=== PATIENT | female | born 1975 | race Caucasian/White ===

== ENCOUNTER 2020-07-28 13:05 | Emergency (ER) | payer SELFPAY ==
[2020-07-28] MEDS ORDERED: MORPHINE 4 MG/ML SYR ONE (13:55)
[2020-07-28] MEDS ORDERED: NA CHLORIDE 0.9% 1,000 ML ONE (13:55)
[2020-07-28] MEDS ORDERED: ONDANSETRON 4 MG/2 ML VIAL ONE (13:55)
--- NOTE | 2020-07-28 13:58 | RAD REPORT ---
EXAM DESCRIPTION: US - Abdomen Exam Limited - 07/28/2020 1:49 pm CLINICAL HISTORY: ABD PAIN COMPARISON: No comparisons FINDINGS: No gallstones, sludge or other abnormalities within the gallbladder lumen. There is no wal l thickening or pericholecystic fluid. Gallbladder is only partially filled limiting detail. No common duct stone or biliary tree dilatation identified. IMPRESSION: Normal gallbladder and biliary tree ultrasound.
[2020-07-28 14:16] LABS: Absolute Lymphocytes (CBC) 2.2 K/uL (0.7-4.9); Basophils % 0.9 % (0-1.3); Hematocrit 31.6 % (36.0-45.0); MPV 8.8 fL (7.6-11.3); RBC Red Blood Cell Count 4.88 M/uL (3.86-4.86)
--- NOTE | 2020-07-28 14:34 | RAD REPORT ---
EXAM DESCRIPTION: CT - Abdomen Pelvis W Contrast - 07/28/2020 2:21 pm CLINICAL HISTORY: ABD PAIN COMPARISON: Abdomen Exam Limited dated 07/28/2020 TECHNIQUE: Biphasic, helical CT imaging of the abdomen and pelvis was performed following 100 ml non -ionic IV contrast. Oral contrast was given. All CT scans are performed using dose optimization technique as appropriate and may include automated exposure control or mA/KV adjustment according to patient size. FINDINGS: No suspicious findings in the lung bases. The liver, spleen, and pancreas show no suspicious findings. A 6 cm benign liver cyst present. Gallbl adder and biliary tree are also without suspicious finding. Symmetric renal function is seen with no hydronephrosis or suspicious renal mass. No pyelonephritis o r acute parenchymal process. No bladder abnormalities. No adrenal abnormalities. A 2 cm left ovary cy st is present.Normal uterus and right ovary. No dilated bowel loops or bowel wall thickening. No free air, abnormal free fluid or inflammatory st randing. No hernia, mass or bulky lymphadenopathy. No suspicious bony findings. IMPRESSION: Contrast enhanced CT abdomen and pelvis showing no significant or suspicious finding.
[2020-07-28 14:36] LABS: ALT/SGPT 23 U/L (12-78); AST/SGOT 15 U/L (15-37); Albumin 3.4 g/dL (3.4-5.0); Alkaline Phosphatase 87 U/L (45-117); BUN Blood Urea Nitrogen 11 mg/dL (7-18); Bicarbonate 26 mmol/L (21-32); Bilirubin Direct < 0.1 mg/dL (0-0.2); Bilirubin Total 0.4 mg/dL (0.2-1.0); Glucose Level 78 mg/dL (74-106); Lipase 161 U/L (73-393); Potassium 4.1 mmol/L (3.5-5.1); Protein, Total 7.5 g/dL (6.4-8.2); Sodium Level 140 mmol/L (136-145)
[2020-07-28 14:42] LABS: Anisocytosis 1+; Blood Morphology Comment NOTED (NOT SEEN); Hypochromasia 1+; Platelet Estimate ADEQ; White Blood Cell Scan OK (OK)
--- NOTE | 2020-07-28 14:48 | EDPHYS ---
Physician Documentation [facility] Name: aSmson Mckee Age: 44 yrs Sex: Female : 1975 Arrival Date: 07/28/2020 Time: 13:08 Bed 8 Private MD: JACQUE Physician Shawn Simpson HPI: 07/28 13:26 This 44 yrs old Female presents to ER via Ambulatory with complaints of R kb Side Pain. 13:26 The patient presents with abdominal pain in the right upper quadrant. Onset: The kb symptoms/episode began/occurred 1 year(s) ago, and became worse today. The symptoms do not radiate. Associated signs and symptoms: Pertinent positives: nausea. The symptoms are described as constant. Modifying factors: The symptoms are alleviated by nothing, the symptoms are aggravated by movement. Severity of pain: At its worst the pain was moderate severe in the emergency department the pain is unchanged. The patient has not experienced similar symptoms in the past. The patient has not recently seen a physician. Pt reports RUQ pain for 1 year that is worse today. States she had it checked out before and was told it was cysts on kidney and liver, but did not get further workup after that due to financial issues. States the pain is worse today and sometimes causes nausea that makes her feel like she is going to pass out. . CHEFS: 14:29 LMP 07/14/2020 tw2 Historical: - Allergies: 13:19 No Known Allergies; ll1 - PMHx: 13:19 Asthma; cyst on kidney and liver; ll1 - PSHx: 13:19 ; ll1 - Immunization history:: Flu vaccine is not up to date. - Social history:: Smoking status: Patient denies any tobacco usage or history of. ROS: 13:26 Constitutional: Negative for fever, chills, and weight loss, Cardiovascular: Negative kb for chest pain, palpitations, and edema, Respiratory: Negative for shortness of breath, cough, wheezing, and pleuritic chest pain, Back: Negative for injury and pain, : Negative for injury, bleeding, discharge, and swelling, MS/Extremity: Negative for injury and deformity, Skin: Negative for injury, rash, and discoloration, Neuro: Negative for headache, weakness, numbness, tingling, and seizure. 13:26 Abdomen/GI: Positive for abdominal pain, nausea, Negative for vomiting, diarrhea. Exam: 13:26 Constitutional: This is a well developed, well nourished patient who is awake, alert, kb and in no acute distress. Head/Face: Normocephalic, atraumatic. Chest/axilla: Normal chest wall appearance and motion. Nontender with no deformity. No lesions are appreciated. Cardiovascular: Regular rate and rhythm with a normal S1 and S2. No gallops, murmurs, or rubs. Normal PMI, no JVD. No pulse deficits. Respiratory: Lungs have equal breath sounds bilaterally, clear to auscultation and percussion. No rales, rhonchi or wheezes noted. No increased work of breathing, no retractions or nasal flaring. Back: No spinal tenderness. No costovertebral tenderness. Full range of motion. Skin: Warm, dry with normal turgor. Normal color with no rashes, no lesions, and no evidence of cellulitis. MS/ Extremity: Pulses equal, no cyanosis. Neurovascular intact. Full, normal range of motion. Neuro: Awake and alert, GCS 15, oriented to person, place, time, and situation. Cranial nerves II-XII grossly intact. Motor strength 5/5 in all extremities. Sensory grossly intact. Cerebellar exam normal. Normal gait. 13:26 Abdomen/GI: Inspection: abdomen appears normal, Bowel sounds: normal, in all quadrants, Palpation: soft, in all quadrants, moderate abdominal tenderness, in the right upper quadrant. Vital Signs: 13:15 BP 136 / 73; Pulse 93; Resp 18; Temp 98.5; Pulse Ox 100% ; Weight 122.47 kg; Height 5 ll1 ft. 6 in. (167.64 cm); Pain 10/10; 14:02 BP 122 / 76; Pulse 83; Resp 16; Pulse Ox 100% on R/A; mt 14:29 BP 115 / 79; Pulse 85; Resp 17; Pulse Ox 96% on R/A; tw2 14:53 BP 118 / 64; Pulse 74; Resp 17; Pulse Ox 99% on R/A; tw2 13:15 Body Mass Index 43.58 (122.47 kg, 167.64 cm) ll1 MDM: 13:20 Patient medically screened. kb 13:26 Data reviewed: vital signs, nurses notes. Data interpreted: Pulse oximetry: on room air kb is 100 %. Interpretation: normal. 14:46 Counseling: I had a detailed discussion with the patient and/or guardian regarding: the kb historical points, exam findings, and any diagnostic results supporting the discharge/admit diagnosis, lab results, radiology results, the need for outpatient follow up, a software development intern, to return to the emergency department if symptoms worsen or persist or if there are any questions or concerns that arise at home. 07/28 13:25 Order name: Basic Metabolic Panel; Complete Time: 14:42 kb 07/28 13:25 Order name: CBC with Diff; Complete Time: 14:48 kb 07/28 13:25 Order name: Hepatic Function; Complete Time: 14:42 kb 07/28 13:25 Order name: Lipase; Complete Time: 14:42 kb 07/28 13:25 Order name: US Abdomen Limited; Complete Time: 14:00 kb 07/28 14:42 Order name: CBC Smear Scan; Complete Time: 14:48 EDMS 07/28 13:25 Order name: IV Saline Lock; Complete Time: 14:01 kb 07/28 13:25 Order name: Labs collected and sent; Complete Time: 14:01 kb 07/28 14:00 Order name: CT Abd/Pelvis - IV Contrast Only; Complete Time: 14:42 kb Administered Medications: 14:03 Drug: NS 0.9% 1000 ml Route: IV; Rate: 1000 ml; Site: right antecubital; tw2 14:53 Follow up: Response: No adverse reaction; IV Status: Order to discontinue infusion; IV tw2 Intake: 600ml 14:03 Drug: Zofran (Ondansetron) 4 mg Route: IVP; Site: right antecubital; tw2 14:48 Follow up: Response: No adverse reaction tw2 14:05 Drug: morphine 4 mg Route: IVP; Site: right antecubital; tw2 14:28 Follow up: Response: No adverse reaction; Pain is decreased; RASS: Alert and Calm (0) tw2 14:50 Drug: TORadol - Ketorolac 15 mg Route: IVP; Site: right antecubital; tw2 15:01 Follow up: Response: No adverse reaction; Pain is decreased tw2 14:53 Drug: [place] 10 mg-325 mg 1 tabs Route: PO; tw2 15:01 Follow up: Response: No adverse reaction tw2 15:01 Follow up: Response: RASS: Alert and Calm (0) tw2 Disposition: 07/28/20 14:47 Discharged to Home. Impression: Upper abdominal pain, unspecified, Anemia, unspecified. - Condition is Stable. - Discharge Instructions: Anemia, Nonspecific, Abdominal Pain, Adult, [id number]. - Prescriptions for Bentyl 20 mg Oral Tablet - take 1 tablet by ORAL route every 6 hours As needed; 20 tablet. Zofran 4 mg Oral Tablet - take 1 tablet by ORAL route every 6 hours As needed; 20 tablet. Diclofenac Sodium 75 mg Oral Tablet, Delayed Release (E.C.) - take 1 tablet by ORAL route 2 times per day As needed; 30 tablet. - Medication Reconciliation Form, Thank You Letter, Antibiotic Education, Prescription Opioid Use form. - Follow up: Emergency Department; When: As needed; Reason: Worsening of condition. Follow up: Private Physician; When: 2 - 3 days; Reason: Recheck today's complaints, Continuance of care, Re-evaluation by your physician. Addendum: 07/29/2020 17:53 Co-signature as Attending Physician, Shawn Simpson MD I agree with the assessment and c vazquez plan of care. Signatures: Dispatcher [employer] EDMS Nicole Friedman, MANAGER [employer]IV[employer]-C MANAGER UNIV[employer]-Shawn Benitez MD MD cha Wise, Tara, RN RN tw2 Joel Bateman RN RN ll1 Corrections: (The following items were deleted from the chart) 07/28 14:47 14:47 07/28/2020 14:47 Discharged to Home. Impression: Upper abdominal pain, kb unspecified. Condition is Stable. Forms are Medication Reconciliation Form, Thank You Letter, Antibiotic Education, Prescription Opioid Use. Follow up: Emergency Department; When: As needed; Reason: Worsening of condition. Follow up: Private Physician; When: 2 - 3 days; Reason: Recheck today's complaints, Continuance of care, Re-evaluation by your physician. kb 15:02 14:47 07/28/2020 14:47 Discharged to Home. Impression: Upper abdominal pain, tw2 unspecified; Anemia, unspecified. Condition is Stable. Forms are Medication Reconciliation Form, Thank You Letter, Antibiotic Education, Prescription Opioid Use. Follow up: Emergency Department; When: As needed; Reason: Worsening of condition. Follow up: Private Physician; When: 2 - 3 days; Reason: Recheck today's complaints, Continuance of care, Re-evaluation by your physician. kb
--- NOTE | 2020-07-28 14:48 | ER ---
Nurse's Notes [facility] Name: Samson Mckee Age: 44 yrs Sex: Female : 1975 Arrival Date: 07/28/2020 Time: 13:08 Bed 8 Private MD: Diagnosis: Upper abdominal pain, unspecified;Anemia, unspecified Presentation: 07/28 13:15 Chief complaint: Patient states: Right sided abdominal pain for 1 year, worse today ll1 than usual. Near syncope feeling with nausea today. Was supposed to go get checked, but can't afford further testing right now. Coronavirus screen: Client denies travel out of the [place] in the last 14 days. At this time, the client does not indicate any symptoms associated with coronavirus-19. Ebola Screen: Patient denies travel to an Ebola-affected area in the 21 days before illness onset. Initial Sepsis Screen: Does the patient meet any 2 criteria? HR > 90 bpm. No. Patient's initial sepsis screen is negative. Does the patient have a suspected source of infection? Yes: Acute abdominal pain. Risk Assessment: Do you want to hurt yourself or someone else? Patient reports no desire to harm self or others. Onset of symptoms was August 08, 2019. 13:15 Method Of Arrival: Ambulatory ll1 13:15 Acuity: MARY 3 ll1 LAST CLEANER: 14:29 LMP 07/14/2020 tw2 Historical: - Allergies: 13:19 No Known Allergies; ll1 - PMHx: 13:19 Asthma; cyst on kidney and liver; ll1 - PSHx: 13:19 ; ll1 - Immunization history:: Flu vaccine is not up to date. - Social history:: Smoking status: Patient denies any tobacco usage or history of. Screenin:43 Abuse screen: Denies threats or abuse. Nutritional screening: No deficits noted. tw2 Tuberculosis screening: No symptoms or risk factors identified. Fall Risk None identified. Assessment: 13:37 Reassessment: pt is in [place] at this time. tw2 14:03 General: Appears in no apparent distress. uncomfortable, obese, well groomed, Behavior tw2 is calm, cooperative, appropriate for age. Pain: Complains of pain in right upper quadrant. Neuro: Level of Consciousness is awake, alert, obeys commands, Oriented to person, place, time, situation. Cardiovascular: Heart tones S1 S2 Patient's skin is warm and dry. Respiratory: Airway is patent Respiratory effort is even, unlabored, Respiratory pattern is regular, symmetrical, Breath sounds are clear bilaterally. GI: Abdomen is round non-distended, obese, Bowel sounds present X 4 quads. Reports upper abdominal pain. : No signs and/or symptoms were reported regarding the genitourinary system. EENT: No signs and/or symptoms were reported regarding the EENT system. Derm: No signs and/or symptoms reported regarding the dermatologic system. Musculoskeletal: Range of motion: intact in all extremities. 14:29 Reassessment: Patient appears in no apparent distress at this time. Patient and/or tw2 family updated on plan of care and expected duration. Pain level reassessed. Patient is alert, oriented x 3, equal unlabored respirations, skin warm/dry/pink. Patient states feeling better. 14:53 Reassessment: Patient appears in no apparent distress at this time. Patient and/or tw2 family updated on plan of care and expected duration. Pain level reassessed. Patient is alert, oriented x 3, equal unlabored respirations, skin warm/dry/pink. Patient states feeling better. 14:56 Reassessment: pt in restroom at this time. tw2 Vital Signs: 13:15 BP 136 / 73; Pulse 93; Resp 18; Temp 98.5; Pulse Ox 100% ; Weight 122.47 kg; Height 5 ll1 ft. 6 in. (167.64 cm); Pain 10/10; 14:02 BP 122 / 76; Pulse 83; Resp 16; Pulse Ox 100% on R/A; mt 14:29 BP 115 / 79; Pulse 85; Resp 17; Pulse Ox 96% on R/A; tw2 14:53 BP 118 / 64; Pulse 74; Resp 17; Pulse Ox 99% on R/A; tw2 13:15 Body Mass Index 43.58 (122.47 kg, 167.64 cm) ll1 ED Course: 13:08 Patient arrived in ED. ds1 13:10 Nicole Friedman FNP-C is PHCP. kb 13:10 Shawn Simpson MD is Attending Physician. kb 13:18 Triage completed. ll1 13:19 Arm band placed on Patient placed in an exam room, on a stretcher. ll1 13:20 Bed in low position. Call light in reach. Pulse ox on. NIBP on. tw2 13:37 Amber Muro, RN is Primary Nurse. tw2 13:49 US Abdomen Limited In Process Unspecified. EDMS 14:01 Inserted saline lock: 20 gauge in right antecubital area, using aseptic technique. mt Blood collected. 14:21 CT Abd/Pelvis - IV Contrast Only In Process Unspecified. EDMS 14:57 No provider procedures requiring assistance completed. tw2 15:02 IV discontinued, intact, bleeding controlled, No redness/swelling at site. Pressure tw2 dressing applied. Administered Medications: 14:03 Drug: NS 0.9% 1000 ml Route: IV; Rate: 1000 ml; Site: right antecubital; tw2 14:53 Follow up: Response: No adverse reaction; IV Status: Order to discontinue infusion; IV tw2 Intake: 600ml 14:03 Drug: Zofran (Ondansetron) 4 mg Route: IVP; Site: right antecubital; tw2 14:48 Follow up: Response: No adverse reaction tw2 14:05 Drug: morphine 4 mg Route: IVP; Site: right antecubital; tw2 14:28 Follow up: Response: No adverse reaction; Pain is decreased; RASS: Alert and Calm (0) tw2 14:50 Drug: TORadol - Ketorolac 15 mg Route: IVP; Site: right antecubital; tw2 15:01 Follow up: Response: No adverse reaction; Pain is decreased tw2 14:53 Drug: [place] 10 mg-325 mg 1 tabs Route: PO; tw2 15:01 Follow up: Response: No adverse reaction tw2 15:01 Follow up: Response: RASS: Alert and Calm (0) tw2 Intake: 14:53 IV: 600ml; Total: 600ml. tw2 Outcome: 14:47 Discharge ordered by . fabián 15:02 Discharged to home ambulatory, with significant other. tw2 15:02 Condition: stable 15:02 Discharge instructions given to patient, significant other, Instructed on discharge instructions, follow up and referral plans. no drinking with medication, no driving heavy equipment, medication usage, Demonstrated understanding of instructions, follow-up care, medications, Prescriptions given X 3. 15:02 Patient left the ED. tw2 Signatures: Dispatcher [employer] Nicole Campuzano, [employer] Lexi Allen ds1 Amber Muro RN RN tw2 Samantha Medeiros mt, Lynsay, RN RN ll1 Corrections: (The following items were deleted from the chart) 13:18 13:15 Onset of symptoms was August 08, 2020 1 1
[2020-07-28] MEDS ORDERED: HYDROCODONE/APAP 10/325 TAB ONE (15:02)
[2020-07-28] MEDS ORDERED: KETOROLAC 30 MG/ML INJ ONE (15:02)
[2020-07-28 15:12] VITALS: TEMP 98.5
[2020-07-28 15:26] VITALS: BP 118/64; O2SAT 99
== END 2020-07-28 15:02 | disposition home or self-care (01) ==
LOC: ER 13:05
DX: D64.9 Anemia, unspecified (principal)
CPT/HCPCS: 36415; 74177; 76705; 80048; 80076; 82565; 83690; 85025; 96361; 96374; 96375; 99284; J2405; J7030; Q9967